=== PATIENT | female | born 1930 | race Two or more races ===

== ENCOUNTER 2016-10-29 13:31 | Emergency (ER) | payer MEDICARE, MEDICAID ==
[~2016-10-29] VITALS: Ht 165.1 cm; Wt 91.6 kg
[~2016-10-29 13:31] MED LIST: CALC0.25 PO; DILT240C71 PO; FLUT50SP13; GLIP-115 PO; GLYB2.5T76 PO; IRBE300T46 PO; LEV100T PO; LEVO100T8 PO; MAGN400T23 PO; OME20T PO; OMEP20TA44; OYST500T28 PO; POT20T PO; SOTA80TA PO; SPIR25TA89 PO
[2016-10-29 14:30] LABS: Basophils # (auto) 0.1 uL; Basophils % (auto) 0.5 % (0.0-2.0); CONDITION Y; Eosinophils # (auto) 0.1 uL; Eosinophils % (auto) 0.6 % (0.0-7.0); Hematocrit 47.7 % (36.0-46.0); Hemoglobin 16.2 g/dL (12.2-16.2); Lymphocytes # (auto) 1.3 uL; Mean Corpuscular Hgb Conc. 33.9 g/dL (32.0-36.0); Mean Corpuscular Volume 100.1 fL (80.0-100.0); Mean Platelet Volume 8.3 fL (7.4-10.4); Monocytes # (auto) 0.8 uL; Monocytes % (auto) 6.3 % (0.0-12.0); Neutrophils # (auto) 9.9 uL; Neutrophils % (auto) 81.6 % (37.0-80.0); Platelet Count (auto) 213 10^3/uL (140-450); Red Cell Distribution Width 13.6 % (11.6-16.0); White Blood Cell 12.1 10^3/uL (4.4-10.8)
[2016-10-29] MEDS ORDERED: SODIUM CHLORIDE 0.9% 1,000 ML IV ONE (14:50)
[2016-10-29 14:53] LABS: Albumin 3.5 g/dL (3.4-5.0); BUN/Creatinine Ratio 23.7; Bilirubin, Total 1.2 mg/dL (0.2-1.0); Calcium 7.9 mg/dL (8.5-10.1); Magnesium 2.4 mg/dL (1.6-2.6); Potassium 3.9 mmol/L (3.5-5.1); Total Protein 7.4 g/dL (6.4-8.2)
[2016-10-29] MEDS ORDERED: KETOROLAC TROMETH 30 MG/ML 1ML VIAL IV ONE (15:00)
[2016-10-29] MEDS ORDERED: METOCLOPRAMIDE HCL 5MG/ml INJ 2ml VIAL IV ONE (15:00)
[2016-10-29 15:04] LABS: Lactic Acid w/Reflex 2.1 mmol/L (0.4-2.0)
[2016-10-29 15:05] LABS: REFLEX LACTIC ACID YES OR NO YES
[2016-10-29 15:44] LABS: Urine Bilirubin Negative (Negative); Urine Color Yellow (Yellow); Urine Glucose Normal (Normal); Urine Ketone Negative (Negative); Urine RBC 3 /hpf (0 - 4); Urine Squamous Epithelial Cell FEW /hpf (<5); Urine Urobilinogen Normal (Negative); Urine WBC Clumps PRESENT /hpf (None Seen); Urine pH 5.5 (5.0-8.0)
[2016-10-29 16:12] LABS: Urine Blood 2+ /uL (Negative); Urine Nitrite POSITIVE (Negative)
[2016-10-29] MEDS ORDERED: cefTRIAXone 1GM/50ML D5W 50 ML IV ONE (18:15)
[2016-10-29 21:31] VITALS: BP 117/77
== END 2016-10-29 21:46 | disposition short-term general hospital (02) ==
LOC: ER 13:31
DX: M54.17 Radiculopathy, lumbosacral region (principal); E11.21 Type 2 diabetes mellitus with diabetic nephropathy; N39.0 Urinary tract infection, site not specified; J44.9 Chronic obstructive pulmonary disease, unspecified; I11.0 Hypertensive heart disease with heart failure; I50.9 Heart failure, unspecified; I48.91 Unspecified atrial fibrillation; K21.9 Gastro-esophageal reflux disease without esophagitis; G89.29 Other chronic pain; Z95.0 Presence of cardiac pacemaker; Z88.6 Allergy status to analgesic agent; Z88.5 Allergy status to narcotic agent
CPT/HCPCS: 36415; 71010; 72131; 80053; 81001; 82962; 83605; 83735; 84484; 85025; 87040; 93005; 96361; 96365; 99285; J0696; J1885; J2765; J7030

== ENCOUNTER 2016-11-16 10:26 | Emergency (ER) | payer MEDICARE, MEDICAID ==
[~2016-11-16] VITALS: Ht 165.1 cm; Wt 91.6 kg
[2016-11-16 10:33] VITALS: BP 99/67
[2016-11-16] MEDS ORDERED: ONDANSETRON HCL 4 MG/2 ML VIAL IM ONE (11:30)
[2016-11-16] MEDS ORDERED: HYDROmorphone HCL 2 MG/ML VL IM ONE (11:30)
== END 2016-11-16 12:59 | disposition home or self-care (01) ==
LOC: ER 10:26
DX: M47.817 Spondylosis without myelopathy or radiculopathy, lumbosacral region (principal); M54.17 Radiculopathy, lumbosacral region; G89.4 Chronic pain syndrome; Z79.899 Other long term (current) drug therapy; I48.91 Unspecified atrial fibrillation; N18.9 Chronic kidney disease, unspecified; I50.9 Heart failure, unspecified; J44.9 Chronic obstructive pulmonary disease, unspecified; E11.22 Type 2 diabetes mellitus with diabetic chronic kidney disease; K21.9 Gastro-esophageal reflux disease without esophagitis; I13.0 Hypertensive heart and chronic kidney disease with heart failure and stage 1 through stage 4 chronic kidney disease, or unspecified chronic kidney disease; E07.9 Disorder of thyroid, unspecified; Z95.0 Presence of cardiac pacemaker
CPT/HCPCS: 93005; 96372; 99284; J1170; J2405

== ENCOUNTER 2016-11-16 20:07 | Emergency (ER) | payer MEDICARE, MEDICAID ==
[~2016-11-16] VITALS: Ht 167.6 cm; Wt 99.8 kg
[~2016-11-16 20:07] MED LIST changes: +EPINEPHrine HCL 1 MG/10 ML SYRG IV ONE; +SODIUM BICARBONATE 8.4% INJ 50ML SYRINGE IV ONE
[2016-11-16] MEDS ORDERED: SODIUM BICARBONATE 8.4% INJ 50ML SYRINGE ONE (20:13)
[2016-11-16 20:49] LABS: Allen Test Modified; Base Excess -18.1 mmol/L (-2.0-2.0); Blood 02Sat 92.8 % (96-100); Blood COHb 1.1 % (0.5-1.5); Blood MetHb 0.4 % (0.0-1.5); HCO3 13.5 mmol/L (22-26.0); HHb 7.1 % (0.0-5.0); MODE VENT - A/C; O2Hb 91.4 % (94.0-97.0); PCO2 55.7 mmHg (35.0-45.0); PCO2(T) 55.7 mmHg (35.0-45.0); PO2 91.8 mmHg (80.0-100.0); PO2(T) 91.8 mmHg (80.0-100.0); Sample Type Arterial; pH 7.002 (7.350-7.450)
[2016-11-16] MEDS ORDERED: EPINEPHrine HCL 250 ML IV ONE (20:59)
[2016-11-16] MEDS ORDERED: EPINEPHrine HCL INJECTION 4 MG in D5W 5% 250 ML IV ONE (21:00)
[2016-11-16] MEDS ORDERED: NOREPINEPHRINE BITARTRATE 250 ML IV ONE (21:01)
[2016-11-16 21:14] LABS: Basophils # (auto) 0.1 uL; Basophils % (auto) 0.3 % (0.0-2.0); CONDITION Y; DEFINITIVE SEE PRINTOUT; Eosinophils # (auto) 0 uL; Eosinophils % (auto) 0.2 % (0.0-7.0); Hematocrit 44.9 % (36.0-46.0); Hemoglobin 14.8 g/dL (12.2-16.2); Lymphocytes # (auto) 5.2 uL; Lymphocytes % (auto) 25.3 % (10.0-50.0); Mean Corpuscular Hemoglobin 34.5 pg (28.0-32.0); Mean Corpuscular Hgb Conc. 32.9 g/dL (32.0-36.0); Mean Platelet Volume 8.8 fL (7.4-10.4); Monocytes % (auto) 4.9 % (0.0-12.0); Neutrophils # (auto) 14.4 uL; Neutrophils % (auto) 69.3 % (37.0-80.0); Platelet Count (auto) 109 10^3/uL (140-450); Red Cell Distribution Width 14.9 % (11.6-16.0); SUSPECT SEE PRINTOUT; White Blood Cell 20.8 10^3/uL (4.4-10.8)
[2016-11-16 21:22] VITALS: BP 63/26
[2016-11-16 21:26] LABS: Albumin 2.5 g/dL (3.4-5.0); Calcium 7.9 mg/dL (8.5-10.1)
[2016-11-16 21:27] LABS: INR 1.52 (0.9-1.15)
[2016-11-16 21:28] LABS: BUN/Creatinine Ratio 14.5
[2016-11-16 21:40] VITALS: BP 83/52
[2016-11-16 21:53] LABS: Total Protein 6.6 g/dL (6.4-8.2)
[2016-11-16 21:59] LABS: Prothrombin Time 16.6 sec (9.37-12.3)
[2016-11-16 22:02] LABS: Urine Bilirubin Negative (Negative); Urine Blood Negative /uL (Negative); Urine Color Yellow (Yellow); Urine Glucose TRACE mg/dL (Normal); Urine Ketone Negative (Negative); Urine Nitrite Negative (Negative); Urine RBC <1 /hpf (0 - 4); Urine Squamous Epithelial Cell FEW /hpf (<5); Urine Urobilinogen Normal (Negative); Urine pH 5.5 (5.0-8.0)
[2016-11-16 22:03] LABS: Potassium 6.7 mmol/L (3.5-5.1)
[2016-11-16 22:04] LABS: Magnesium 2.8 mg/dL (1.6-2.6)
[2016-11-16 22:10] LABS: Macrocytosis Slight; Platelet Estimate Decreased
== END 2016-11-16 21:55 | disposition expired ==
LOC: ER 20:08
DX: I46.9 Cardiac arrest, cause unspecified (principal); I48.91 Unspecified atrial fibrillation; I50.9 Heart failure, unspecified; N18.9 Chronic kidney disease, unspecified; J44.9 Chronic obstructive pulmonary disease, unspecified; E11.22 Type 2 diabetes mellitus with diabetic chronic kidney disease; K21.9 Gastro-esophageal reflux disease without esophagitis; I13.0 Hypertensive heart and chronic kidney disease with heart failure and stage 1 through stage 4 chronic kidney disease, or unspecified chronic kidney disease; G89.29 Other chronic pain; M54.9 Dorsalgia, unspecified; Z95.0 Presence of cardiac pacemaker; Z79.891 Long term (current) use of opiate analgesic
CPT/HCPCS: 36415; 36600; 51702; 71010; 80053; 81001; 82805; 83735; 84484; 85025; 85379; 85610; 85730; 87070; 87205; 92950; 92960; 93005; 99285; J0171; 94002; J7060